=== PATIENT | female | born 1945 | race Caucasian/White ===

== ENCOUNTER 2017-11-13 14:39 | Emergency (ER) | payer OTHER ==
[~2017-11-13] VITALS: Ht 157.5 cm; Wt 102.1 kg
[2017-11-13] MEDS ORDERED: METO25ER PO (15:14)
[2017-11-13] MEDS ORDERED: ASPI325 PO (15:14)
[2017-11-13] MEDS ORDERED: Omeprazole20 M1 PO (15:14)
[2017-11-13] MEDS ORDERED: GABA100 PO (15:14)
[2017-11-13] MEDS ORDERED: IRON PO (15:15)
[2017-11-13] MEDS ORDERED: Zofran Odt8 MG SL (15:34)
== END 2017-11-13 16:00 | disposition home or self-care (01) ==
LOC: ER 14:39
DX: S06.0X9A Concussion with loss of consciousness of unspecified duration, initial encounter (principal); W01.198A Fall on same level from slipping, tripping and stumbling with subsequent striking against other object, initial encounter; I10 Essential (primary) hypertension; K21.9 Gastro-esophageal reflux disease without esophagitis; Z79.899 Other long term (current) drug therapy; Z79.82 Long term (current) use of aspirin
CPT/HCPCS: 70450; 99284